=== PATIENT | male | born 1960 | race African-American/Black ===

== ENCOUNTER 2016-07-08 01:30 | Emergency (ER) | payer SELFPAY ==
[2016-07-08] MEDS ORDERED: OXYCODONE-ACETAMINOPHEN 5-325 MG TABLET PO ONE (03:43)
[2016-07-08] MEDS ORDERED: PENICILLIN V POTASSIUM 500 MG TABLET PO ONE (03:43)
--- NOTE | 2016-07-08 03:45 | ER Document Report ---
HPI - HPI Patient complains to provider of: dental pain Onset: Other Onset/Duration: Persistent - 2 days Quality of pain: Achy Pain Level: 5 Context: Patient complains of right upper dental pain for the past 2 days. Patient denies any fever or facial swelling. Associated Symptoms: Other - Dental pain Exacerbated by: Denies Relieved by: Denies Similar symptoms previously: Yes Recently seen / treated by doctor: No - ROS ROS below otherwise negative: Yes Systems Reviewed and Negative: Yes All other systems reviewed and negative - CONSTITUTIONAL Constitutional: DENIES: Fever - EENT EENT: DENIES: Sore Throat Notes: Dental pain - NEURO Neurology: DENIES: Headache - RESPIRATORY Respiratory: DENIES: Trouble Breathing, Coughing - GASTROINTESTINAL Gastrointestinal: DENIES: Nausea, Patient vomiting - MUSCULOSKELETAL Musculoskeletal: DENIES: Extremity pain, Neck Pain - DERM Skin Color: Normal Skin Problems: None Past Medical History - General Information source: Patient - Social History Smoking Status: Current Every Day Smoker Frequency of alcohol use: Occasional Drug Abuse: None Occupation: disabled Lives with: Family Family History: Reviewed & Not Pertinent Patient has suicidal ideation: No Patient has homicidal ideation: No - Past Medical History Cardiac Medical History: Reports: Hx Hypertension, Other - Peripheral artery disease Renal/ Medical History: Denies: Hx Peritoneal Dialysis Surgical Hx: Negative Vertical Provider Document - CONSTITUTIONAL Agree With Documented VS: Yes Exam Limitations: No Limitations General Appearance: WD/WN, No Apparent Distress - INFECTION CONTROL TRAVEL OUTSIDE OF THE [place] IN LAST 30 DAYS: No - HEENT HEENT: Atraumatic, Normocephalic Mouth Diagram: 1 - Dental decay, tenderness 2 - Broken tooth below the gumline Notes: No sublingual or submental swelling, no trismus, no potential airway compromise - NECK Neck: Normal Inspection, Supple - RESPIRATORY Respiratory: Breath Sounds Normal, No Respiratory Distress O2 Sat by Pulse Oximetry: 97 - CARDIOVASCULAR Cardiovascular: Regular Rate, Regular Rhythm, No Murmur - BACK Back: Normal Inspection - MUSCULOSKELETAL/EXTREMETIES Musculoskeletal/Extremeties: MAEW - NEURO Level of Consciousness: Awake, Alert, Appropriate Motor/Sensory: No Motor Deficit - DERM Integumentary: Warm, Dry, No Rash Course - Vital Signs Vital signs: Temp Pulse Resp BP Pulse Ox 97.7 F 76 18 173/63 H 97 07/08/16 01:36 07/08/16 01:36 07/08/16 01:36 07/08/16 01:36 07/08/16 01:36 Discharge - Discharge Clinical Impression: History of hypertension, Pain due to dental caries Condition: Stable Disposition: HOME, SELF-CARE Instructions: Penicillin V K ([facility]), Oral Narcotic Medication ([facility]), Toothache ( [facility]) Additional Instructions: Return immediately for any new or worsening symptoms Followup with your primary care provider, call tomorrow to make a followup appointment Follow up with the dentist Recheck with your primary doctor, your blood pressure was elevated tonight. Your doctor can recheck this in 1-2 days Prescriptions: Oxycodone HCl/Acetaminophen [Percocet 5-325 mg Tablet] 1 tab PO ASDIR PRN #12 tablet PRN Reason: Penicillin V Potassium [Penicillin Vk 500 mg Tablet] 500 mg PO BID #20 tablet Forms: Elevated Blood Pressure Referrals: [facility] [Provider Group] - Follow up as needed
[2016-07-08 04:25] VITALS: BP 133/65
== END 2016-07-08 04:25 | disposition home or self-care (01) ==
LOC: ER 01:30
DX: K02.9 Dental caries, unspecified (principal); I10 Essential (primary) hypertension; K08.89 Other specified disorders of teeth and supporting structures; F17.200 Nicotine dependence, unspecified, uncomplicated
CPT/HCPCS: 99282

== ENCOUNTER 2017-06-28 03:09 | Emergency (ER) | payer SELFPAY ==
[2017-06-28] MEDS ORDERED: SULFAMETHOXAZOLE/TRIMETHOPRIM 800-160 MG TABLET PO ONE (05:49)
[2017-06-28] MEDS ORDERED: CEPHALEXIN 500 MG CAPSULE PO ONE (05:49)
--- NOTE | 2017-06-28 05:50 | ER Document Report ---
HPI - HPI Patient complains to provider of: Left breast tenderness Onset: Last week Onset/Duration: Worse Quality of pain: Achy Pain Level: 3 Context: She states he has had a lump to the left breast for several months. Patient states over the past week the area has become tender, swollen and painful. Patient denies any fever. Patient denies any previous piercing. Associated Symptoms: Other - Left breast tenderness. denies: Fever Exacerbated by: Denies Relieved by: Denies Similar symptoms previously: No Recently seen / treated by doctor: No - ROS ROS below otherwise negative: Yes Systems Reviewed and Negative: Yes All other systems reviewed and negative - CONSTITUTIONAL Constitutional: DENIES: Fever, Chills - EENT EENT: DENIES: Sore Throat, Ear Pain, Eye problems - NEURO Neurology: DENIES: Headache - CARDIOVASCULAR Cardiovascular: DENIES: Chest pain - RESPIRATORY Respiratory: DENIES: Trouble Breathing, Coughing - MUSCULOSKELETAL Musculoskeletal: DENIES: Extremity pain - DERM Notes: Abscess to left breast Past Medical History - General Information source: Patient - Social History Smoking Status: Current Every Day Smoker Chew tobacco use (# tins/day): No Frequency of alcohol use: None Drug Abuse: None Occupation: None Family History: Reviewed & Not Pertinent Patient has suicidal ideation: No Patient has homicidal ideation: No - Past Medical History Cardiac Medical History: Reports: Hx Hypertension Renal/ Medical History: Denies: Hx Peritoneal Dialysis Surgical Hx: Negative - Immunizations Hx Diphtheria, Pertussis, Tetanus Vaccination: Yes Vertical Provider Document - CONSTITUTIONAL Agree With Documented VS: Yes Exam Limitations: No Limitations General Appearance: WD/WN, No Apparent Distress - INFECTION CONTROL TRAVEL OUTSIDE OF THE [place] IN LAST 30 DAYS: No - HEENT HEENT: Atraumatic, Normocephalic - NECK Neck: Normal Inspection - RESPIRATORY Respiratory: Breath Sounds Normal, No Respiratory Distress - CARDIOVASCULAR Cardiovascular: Regular Rate, Regular Rhythm - BACK Back: Normal Inspection - MUSCULOSKELETAL/EXTREMETIES Musculoskeletal/Extremeties: MAEW - NEURO Level of Consciousness: Awake, Alert, Appropriate Motor/Sensory: No Motor Deficit - DERM Integumentary: Warm, Dry, Abscess - Patient with abscess adjacent and behind the left nipple. Skin surrounding areola is erythematous and indurated Course - Re-evaluation Re-evalutation: 06/28/17 05:50 Dr. Mello to bedside for consultation, recommends incision and drainage with outpatient surgical follow-up - Vital Signs Vital signs: Temp Pulse Resp BP Pulse Ox 97.8 F 61 20 149/52 H 97 06/28/17 03:14 06/28/17 03:14 06/28/17 03:14 06/28/17 03:14 06/28/17 03:14 Procedures - Incision and Drainage Left Chest Type: Simple Anesthetic type: 1% Lidocaine Blade size: 11 I&D procedure: Betadine prep applied Incision Method: Incision made by scalpel Amount/type of drainage: large amount of purulent drainage Adult Front & Back picture: 1 - abscess Discharge - Discharge Clinical Impression: Breast abscess in male, Breast lump Condition: Stable Disposition: HOME, SELF-CARE Instructions: Abscess ([facility]), Oral Narcotic Medication ([facility]), Post Incision and Drainage, Trimethoprim-Sulfa ([facility]) Additional Instructions: Return immediately for any new or worsening symptoms Followup with your primary care provider, call tomorrow to make a followup appointment Wound cultures pending, we will call if you need any different treatment Follow-up with a surgeon for further evaluation of breast lump. It is important to make sure that this is not potentially early cancer. Call tomorrow for an appointment. Prescriptions: Cephalexin Monohydrate [Keflex 500 mg Capsule] 500 mg PO Q6H 5 Days capsule Naproxen [Naprosyn 250 Nmg Tablet] 1 tab PO BID #14 tablet Sulfamethoxazole/Trimethoprim [Bactrim Ds Tablet] 1 each PO BID #20 tablet Forms: Smoking Cessation Education Referrals: [facility] [Provider Group] - Follow up in 3-5 days
[2017-06-28] MEDS ORDERED: HYDROCODONE/ACETAMINOPHEN 5-325 MG (6 TAB/ER DISP) PO PRN (06:31)
[2017-06-28 06:48] VITALS: BP 146/51
== END 2017-06-28 06:40 | disposition home or self-care (01) ==
LOC: ER 03:09
PROC: 0H95XZZ Drainage of Chest Skin, External Approach (ICD-10-PCS; principal; 2017-06-28)
DX: N61.1 Abscess of the breast and nipple (principal); N63.0 Unspecified lump in unspecified breast; N64.4 Mastodynia
CPT/HCPCS: 87070; 87186; 87205; 99283

== ENCOUNTER 2017-07-14 10:16 | Emergency (ER) | payer MEDICARE, MEDICAID ==
[2017-07-14] MEDS ORDERED: KETOROLAC TROMETHAMINE INJ/PF 30 MG/1 ML SDV IM ONE (10:45)
--- NOTE | 2017-07-14 10:50 | ER Document Report ---
HPI - HPI Pain Level: 4 Notes: Patient is a 57-year-old male with a history of peripheral artery disease who presents to the ED complaining of posterior left shoulder pain status post injury 3 days ago. Patient states that he was raising his son when he lost balance so instead of falling on his face he did a somersault and landed on the shoulder. Patient states that he has had pain in that shoulder since then that will occasionally radiate into the left upper arm. Patient states that he is still able to move his arm through range of motion without any difficulties otherwise. He has been using Tylenol, Motrin, and ice. He has no other concerns or complaints at this time. Denies any drug allergies. He has not noticed any other bruising or swelling. Denies any headache, fever, head injury , neck pain, URI, sore throat, chest pain, palpitations, syncope, cough, shortness of breath, wheeze, dyspnea, abdominal pain, nausea/vomiting/diarrhea, urinary retention, dysuria, hematuria, loss of control of bowel or bladder, numbness/tingling, muscle paralysis/weakness, or rash. - ROS Systems Reviewed and Negative: Yes All other systems reviewed and negative Past Medical History - Social History Smoking Status: Unknown if Ever Smoked Family History: Reviewed & Not Pertinent - Past Medical History Cardiac Medical History: Reports: Hx Hypertension Renal/ Medical History: Denies: Hx Peritoneal Dialysis - Immunizations Hx Diphtheria, Pertussis, Tetanus Vaccination: Yes Vertical Provider Document - CONSTITUTIONAL Agree With Documented VS: Yes Notes: PHYSICAL EXAMINATION: GENERAL: Well-appearing, well-nourished and in no acute distress. A&Ox4. HEAD: Atraumatic, normocephalic. EYES: Pupils equal round and reactive to light, extraocular movements intact, sclera anicteric, conjunctiva are normal. NECK: Normal range of motion, supple without lymphadenopathy. No tenderness. Spurling negative. LUNGS: Breath sounds clear to auscultation bilaterally and equal. No wheezes rales or rhonchi. HEART: Regular rate and rhythm without murmurs, rubs, gallops. Musculoskeletal: Left shoulder: FROM to passive/active. Strength 5+/5. RC intact w/o deficits noted. + mild tenderness to the insertion at the latissimus dorsi and posterior shoulder. No swelling, ecchymosis, erythema, warmth, or deformity noted. N/V intact distal. No bony tenderness. Extremities: No cyanosis, clubbing, or edema b/l. Peripheral pulses 2+. Capillary refill less than 3 seconds. NEUROLOGICAL: Normal speech, normal gait. Normal sensory, motor exams PSYCH: Normal mood, normal affect. SKIN: Warm, Dry, normal turgor, no rashes or lesions noted. - INFECTION CONTROL TRAVEL OUTSIDE OF THE [place] IN LAST 30 DAYS: No Course - Re-evaluation Re-evalutation: 07/14/17 11:29 Patient is an afebrile, well-hydrated, 57-year-old male who presents to the ED with left shoulder pain, suspect sprain versus strain. Vitals are acceptable. PE is otherwise unremarkable for any neurovascular compromise, obvious tendon/ ligament rupture, obvious fracture/dislocation, septic joint. X-ray was unremarkable for any acute pathology. Toradol was given IM today. I will send him home with a prescription for naproxen. Conservative measures otherwise for symptoms. Recheck with your PCM in 3-5 days. Consider consult with orthopedic/ physical therapy. Return to the ED with any worsening/concerning symptoms otherwise as reviewed discharge. Patient is in agreement. - Vital Signs Vital signs: Temp Pulse Resp BP Pulse Ox 97.8 F 84 16 173/74 H 97 07/14/17 10:22 07/14/17 10:22 07/14/17 10:22 07/14/17 10:22 07/14/17 10:22 Discharge - Discharge Clinical Impression: Left shoulder pain Qualifiers: Chronicity: acute Qualified Code(s): M25.512 - Pain in left shoulder Condition: Stable Disposition: HOME, SELF-CARE Additional Instructions: Rest, Ice, Compression Tylenol/ibuprofen as needed Light stretches daily Strength exercises as able Moist heat and massage may help F/u with your PCP in 3-5 days for a recheck Consider consult(s) with Orthopedics/physical therapy for ongoing/worsening symptoms Return to the ED with any worsening symptoms and/or development of fever, headache, chest pain, palpitations, syncope, shortness of breath, trouble breathing, abdominal pain, n/v/d, muscle weakness/paralysis, numbness/tingling, swelling, redness, or other worsening symptoms that are concerning to you. Prescriptions: Naproxen 500 mg PO BID PRN #30 tablet PRN Reason: Forms: Elevated Blood Pressure Referrals: [facility] [Provider Group] - Follow up as needed
--- NOTE | 2017-07-14 11:16 | RADIOLOGY REPORT (SQ) ---
EXAM DESCRIPTION: SHOULDER LEFT 2 OR MORE VIEWS COMPLETED DATE/TIME: 07/14/2017 10:54 am REASON FOR STUDY: left shoulder pain s/p injury COMPARISON: None. NUMBER OF VIEWS: Three views. TECHNIQUE: Internal rotation, external rotation, and Y view images acquired of the left shoulder. LIMITATIONS: None. FINDINGS: MINERALIZATION: Normal. BONES: No acute fracture or dislocation. No worrisome bone lesions. JOINTS: No dislocation. VISUALIZED LUNGS AND RIBS: No pneumothorax. No rib fracture. SOFT TISSUES: No radiopaque foreign body. OTHER: No other significant finding. IMPRESSION: NEGATIVE STUDY OF THE LEFT SHOULDER. NO RADIOGRAPHIC EVIDENCE OF ACUTE INJURY. TECHNICAL DOCUMENTATION: JOB ID: [id number] [employer]- All Rights Reserved Reading location - IP/workstation name: [email or web address]
[2017-07-14 12:08] VITALS: BP 154/82
== END 2017-07-14 12:00 | disposition home or self-care (01) ==
LOC: ER 10:16
DX: M25.512 Pain in left shoulder (principal); M79.602 Pain in left arm; W19.XXXA Unspecified fall, initial encounter; I10 Essential (primary) hypertension
CPT/HCPCS: 99283; 96372; 73030; J1885

== ENCOUNTER 2017-10-13 23:18 | Emergency (ER) | payer MEDICARE, MEDICAID ==
[2017-10-14] MEDS ORDERED: DIPH/PERTUSS(ACELL)/TETANUS VAC/PF 0.5 ML SYR (>=10YO) IM ONE (00:36)
[2017-10-14] MEDS ORDERED: LIDOCAINE 1% INJ-PF (10 MG/ML) 30 ML SDV INJ ONE (00:36)
--- NOTE | 2017-10-14 00:40 | ER Document Report ---
ED Wound - General Chief Complaint: Laceration Stated Complaint: FINGER LACERATION Time Seen by Provider: 10/14/17 00:32 Notes: Patient is a 57-year-old male comes to the emergency department for chief complaint of laceration to his right index finger. He states he sleeps with a razor sharp machete blade across his chest, he states that he accidentally moved his hand while he was shifting and cut open his finger. He denies any other injuries. His tetanus is not up-to-date within 5 years. He is not on any blood thinners, he does not have a history of diabetes. TRAVEL OUTSIDE OF THE [place] IN LAST 30 DAYS: No - Related Data Allergies/Adverse Reactions: No Known Allergies Allergy (Verified 07/14/17 10:17) Past Medical History - General Information source: Patient - Social History Smoking Status: Never Smoker Drug Abuse: None Lives with: Alone Family History: Reviewed & Not Pertinent - Past Medical History Cardiac Medical History: Reports: Hx Hypertension Renal/ Medical History: Denies: Hx Peritoneal Dialysis - Immunizations Immunizations up to date: No Hx Diphtheria, Pertussis, Tetanus Vaccination: Yes Review of Systems - Review of Systems Constitutional: No symptoms reported EENT: No symptoms reported Cardiovascular: No symptoms reported Respiratory: No symptoms reported Gastrointestinal: No symptoms reported Genitourinary: No symptoms reported Male Genitourinary: No symptoms reported Musculoskeletal: See HPI Skin: See HPI Hematologic/Lymphatic: No symptoms reported Neurological/Psychological: No symptoms reported Physical Exam - Vital signs Vitals: Temp Pulse Resp BP Pulse Ox 98.7 F 58 L 18 147/53 H 96 10/14/17 00:04 10/14/17 00:04 10/14/17 00:04 10/14/17 00:04 10/14/17 00:04 - Notes Notes: GENERAL: Alert, interacts well. No acute distress. HEAD: Normocephalic, atraumatic. EYES: Pupils equal, round, and reactive to light. Extraocular movements intact. ENT: Oral mucosa moist, tongue midline. NECK: Full range of motion. Supple. Trachea midline. LUNGS: Clear to auscultation bilaterally, no wheezes, rales, or rhonchi. No respiratory distress. HEART: Regular rate and rhythm. No murmur ABDOMEN: Soft, non-tender. Non-distended. Bowel sounds present in all 4 quadrants. EXTREMITIES: Moves all 4 extremities spontaneously. There is a 1.5 cm laceration over the palmar aspect of the right index finger between the PIP and the DIP, partial-thickness, normal range of motion of the finger, normal sensation and capillary refill, no evidence of large vessel injury. Normal upper extremity exam otherwise. BACK: no cervical, thoracic, lumbar midline tenderness. No saddle anesthesia, normal distal neurovascular exam. NEUROLOGICAL: Alert and oriented x3. Normal speech. [cranial nerves II through XII grossly intact]. PSYCH: Normal affect, normal mood. SKIN: Warm, dry, normal turgor. No rashes or lesions noted. Course - Re-evaluation Re-evalutation: Wound cleaned thoroughly, repaired. No evidence of damage to the tendon, nerve , or large vessel. Discussed wound care, advised patient not sleep with any weapons, discussed follow-up and return precautions. Patient states understanding and agreement. - Vital Signs Vital signs: Temp Pulse Resp BP Pulse Ox 98.7 F 58 L 18 147/53 H 96 10/14/17 00:04 10/14/17 00:04 10/14/17 00:04 10/14/17 00:04 10/14/17 00:04 Procedures - Laceration/Wound Repair Right index finger Wound length (cm): 1.5 Wound's Depth, Shape: Linear Laceration pre-procedure: Sterile PPE donned, Sterile drapes applied, Shur- Clens applied Anesthetic type: 1% Lidocaine Volume Anesthetic (mLs): 2 Wound explored: Clean, No foreign body removed Irrigated w/ Saline (mLs): 40 Wound Repaired With: Sutures Suture Size/Type: 5:0 Number of Sutures: 4 Layer Closure?: No Post-procedure wound care: Sterile dressing applied Post-procedure NV exam normal: Yes Complications: No Discharge - Discharge Clinical Impression: Finger laceration Qualifiers: Encounter type: initial encounter Finger: index finger Damage to nail status: without damage Foreign body presence: without foreign body Laterality: right Qualified Code(s): S61.210A - Laceration without foreign body of right index finger without damage to nail, initial encounter Condition: Stable Disposition: HOME, SELF-CARE Instructions: Tetanus Immunization Given ([facility]) Additional Instructions: Sutures need to come out in about 7 days a medical facility. Keep clean, clean with soap and water, avoid soaking, dab dry. You can dress with topical antibiotic. Follow-up with primary care. Return for any concerning symptoms including swelling, redness, discolored discharge, fever, or any other concerning symptoms.
[2017-10-14 02:11] VITALS: BP 120/50
== END 2017-10-14 02:11 | disposition home or self-care (01) ==
LOC: ER 23:18
DX: S61.210A Laceration without foreign body of right index finger without damage to nail, initial encounter (principal); W26.8XXA Contact with other sharp object(s), not elsewhere classified, initial encounter; Y93.84 Activity, sleeping; I10 Essential (primary) hypertension
CPT/HCPCS: 99282; 90471; 90715; 12001; J3490

== ENCOUNTER 2019-01-05 21:02 | Emergency (ER) | payer MEDICAID, MEDICARE, OTHER ==
[2019-01-05] MEDS ORDERED: ACETAMINOPHEN 325 MG TABLET PO ONE (21:38)
--- NOTE | 2019-01-05 21:38 | ER Document Report ---
ED Medical Screen (RME) - General Chief Complaint: Headache Stated Complaint: FALL/HEAD PAIN Time Seen by Provider: 01/05/19 21:34 Mode of Arrival: Ambulatory Information source: Patient Notes: 58-year-old male presents to ED for head pain. He states he fell a week ago yesterday. States that the time he did hit his head states he did not lose consciousness he is not on any blood thinners. He states the pain is on the left side of his head. He states he has arterial disease in his left arm stays numb it is the left side of his head that hurts. Patient is alert oriented respirations regular and unlabored speaking in full sentences at this time. He states the pain is not getting any better and is at least 4 out of 5. He states he is tried Tylenol and Excedrin with no relief. States he has not been to a doctor he does not have a primary care doctor. He states he had some Tylenol on Saturday and Saturday but none today. I have greeted and performed a rapid initial assessment of this patient. A comprehensive ED assessment and evaluation of the patient, analysis of test results and completion of medical decision making process will be conducted by an additional ED providers. TRAVEL OUTSIDE OF THE [place] IN LAST 30 DAYS: No - Related Data Allergies/Adverse Reactions: No Known Allergies Allergy (Verified 07/14/17 10:17) Past Medical History - Past Medical History Cardiac Medical History: Reports: Hx Hypertension Renal/ Medical History: Denies: Hx Peritoneal Dialysis - Immunizations Immunizations up to date: No Hx Diphtheria, Pertussis, Tetanus Vaccination: Yes Physical Exam - Vital signs Vitals: Temp Pulse Resp BP Pulse Ox 98.6 F 96 16 130/57 H 93 01/05/19 21:08 01/05/19 21:08 01/05/19 21:08 01/05/19 21:08 01/05/19 21:08 Course - Vital Signs Vital signs: Temp Pulse Resp BP Pulse Ox 98.6 F 96 16 130/57 H 93 01/05/19 21:08 01/05/19 21:08 01/05/19 21:08 01/05/19 21:08 01/05/19 21:08
--- NOTE | 2019-01-05 22:29 | RADIOLOGY REPORT (SQ) ---
CT HEAD WITHOUT IV CONTRAST EXAM DATE: 01/05/2019 9:38 PM CDT HISTORY: Fall headache. COMPARISON: None. TECHNIQUE: CT scan of the brain without IV contrast. This exam was performed according to our departmental dose-optimization program, which includes automated exposure control, adjustment of the mA and/or kV according to patient size and/or use of iterative reconstruction technique. FINDINGS: The ventricles, cisterns, and sulci are age-appropriate. No evidence of acute infarction, intracranial hemorrhage, extra-axial fluid collection, or midline shift. No air-fluid levels are seen in the paranasal sinuses to suggest acute sinusitis. No depressed skull fracture. IMPRESSION: No acute intracranial findings.
--- NOTE | 2019-01-05 23:08 | ER Document Report ---
ED Fall - General Chief Complaint: Fall Injury Stated Complaint: FALL/HEAD PAIN Time Seen by Provider: 01/05/19 21:34 Mode of Arrival: Ambulatory Information source: Patient Notes: Patient is a 4-year-old male presents to the emergency department after a fall on 12/27/2018. Patient states he tripped from standing height fell onto concrete in the left side of his head. Patient's denying any loss of consciousness or vomiting at that time. States he has had intermittent headache ever since. Patient voices "just wanted to make sure there were no tumors and there." Patient is denying taking any blood thinners or any other medications. Patient denies any blurred vision, dizziness, lightheaded to me upon examination. He has been treated with Tylenol by E provider. Patient is watching sports on his cell phone in no apparent distress upon examination. TRAVEL OUTSIDE OF THE [place] IN LAST 30 DAYS: No - Related data Allergies/Adverse Reactions: No Known Allergies Allergy (Verified 01/05/19 21:44) Home Medications: Pt denies any home medications Past Medical History - General Information source: Patient - Social History Smoking Status: Current Every Day Smoker Chew tobacco use (# tins/day): No Frequency of alcohol use: approx 1 shot daily Drug Abuse: Marijuana Family History: Reviewed & Not Pertinent Patient has suicidal ideation: No Patient has homicidal ideation: No - Past Medical History Cardiac Medical History: Reports: Hx Hypertension Renal/ Medical History: Denies: Hx Peritoneal Dialysis - Immunizations Immunizations up to date: No Hx Diphtheria, Pertussis, Tetanus Vaccination: Yes Review of Systems - Review of Systems Constitutional: denies: Fever EENT: See HPI Cardiovascular: No symptoms reported Respiratory: No symptoms reported Gastrointestinal: No symptoms reported Genitourinary: No symptoms reported Male Genitourinary: No symptoms reported Musculoskeletal: No symptoms reported Skin: No symptoms reported Hematologic/Lymphatic: No symptoms reported Neurological/Psychological: See HPI Physical Exam - Vital signs Vitals: Temp Pulse Resp BP Pulse Ox 98.6 F 96 16 130/57 H 93 01/05/19 21:08 01/05/19 21:08 01/05/19 21:08 01/05/19 21:08 01/05/19 21:08 - Notes Notes: GENERAL: Alert, interacts well. No acute distress. HEAD: Normocephalic, atraumatic. EYES: Pupils equal, round, and reactive to light. Extraocular movements intact. ENT: Oral mucosa moist, tongue midline. Nares patent, no nasal septal hematoma, TM's intact, no hemotympanum noted bilaterally. NECK: Full range of motion. Supple. Trachea midline. LUNGS: Clear to auscultation bilaterally, no wheezes, rales, or rhonchi. No respiratory distress. HEART: Regular rate and rhythm. No murmur ABDOMEN: Soft, non-tender. Non-distended. Bowel sounds present in all 4 quadrants. EXTREMITIES: Moves all 4 extremities spontaneously. No edema, normal radial and dorsalis pedis pulses bilaterally. No cyanosis. 5 out of 5 strength noted all 4 extremities BACK: no cervical, thoracic, lumbar midline tenderness. No saddle anesthesia, normal distal neurovascular exam. NEUROLOGICAL: Alert and oriented x3. Normal speech. cranial nerves II through XII grossly intact. PSYCH: Normal affect, normal mood. SKIN: Warm, dry, normal turgor. No rashes or lesions noted. Course - Re-evaluation Re-evalutation: 01/05/19 23:[address] 01/05/19 21:38 IMPRESSION: No acute intracranial findings. Upon my examination patient is watching sports on his cell phone. He is in no apparent distress. I discussed patient's negative CT with him at bedside. I also discussed postconcussive syndrome. Patient voices the Tylenol has helped his headache and he no longer has a headache. He is denying any blurred vision, double vision upon my examination. Discussed close follow-up at [facility] as patient voices he is uninsured. - Vital Signs Vital signs: Temp Pulse Resp BP Pulse Ox 98.6 F 96 16 130/57 H 93 01/05/19 21:08 01/05/19 21:08 01/05/19 21:08 01/05/19 21:08 01/05/19 21:08 Discharge - Discharge Clinical Impression: Postconcussive syndrome Condition: Stable Disposition: HOME, SELF-CARE Instructions: Post-Concussion Syndrome ([facility]) Additional Instructions: As we discussed you have been seen and treated in the emergency department for postconcussive syndrome. Please make sure you follow-up at [facility] for continued evaluation. CT imaging of your brain reveals no abnormalities at this time. Please return to the emergency room for any concerns. Referrals: [facility] [Provider Group] - Follow up as needed [facility] [Provider Group] - Follow up as needed
[2019-01-05 23:36] VITALS: BP 105/45
== END 2019-01-05 23:34 | disposition home or self-care (01) ==
LOC: ER 21:02
DX: F07.81 Postconcussional syndrome (principal); R51 Headache; I10 Essential (primary) hypertension; F17.200 Nicotine dependence, unspecified, uncomplicated
CPT/HCPCS: 70450; 99283

== ENCOUNTER 2019-05-25 20:35 | Emergency (ER) | payer OTHER ==
[2019-05-25] MEDS ORDERED: ASPIRIN 81 MG TABLET, CHEWABLE PO ONE (21:02)
--- NOTE | 2019-05-25 21:02 | ER Document Report ---
ED Medical Screen (RME) - General Chief Complaint: Chest Pain Stated Complaint: CHEST PAIN,COUGH.DIFFICULTY BREATHNING Time Seen by Provider: 05/25/19 20:58 Mode of Arrival: Ambulatory Information source: Patient Notes: 59-year-old male presented to ED for complaint of chest pain to the left side of his chest going up to his throat. He states that this started 4 days ago. He states it is continued and he is concerned for this continued chest pain. He is alert oriented respirations regular nonlabored. He has peripheral artery disease but does not have any chest problems in the past. He states he just has poor circulation. He states he smokes 2 black in miles a day, drinks weekly or less, and smokes marijuana. I have greeted and performed a rapid initial assessment of this patient. A comprehensive ED assessment and evaluation of the patient, analysis of test results and completion of medical decision making process will be conducted by an additional ED providers. TRAVEL OUTSIDE OF THE [place] IN LAST 30 DAYS: No - Related Data Allergies/Adverse Reactions: No Known Allergies Allergy (Verified 01/05/19 21:44) Past Medical History - Past Medical History Cardiac Medical History: Reports: Hx Hypertension Renal/ Medical History: Denies: Hx Peritoneal Dialysis - Immunizations Immunizations up to date: No Hx Diphtheria, Pertussis, Tetanus Vaccination: Yes Physical Exam - Vital signs Vitals: Temp Pulse Resp BP Pulse Ox 99.0 F 90 16 133/57 H 97 05/25/19 20:49 05/25/19 20:49 05/25/19 20:49 05/25/19 20:49 05/25/19 20:49 Course - Vital Signs Vital signs: Temp Pulse Resp BP Pulse Ox 99.0 F 90 16 133/57 H 97 05/25/19 20:49 05/25/19 20:49 05/25/19 20:49 05/25/19 20:49 05/25/19 20:49
--- NOTE | 2019-05-25 21:44 | RADIOLOGY REPORT (SQ) ---
EXAM DESCRIPTION: XR CHEST 2 VIEWS COMPLETED DATE/TME: 05/25/2019 21:03 CLINICAL HISTORY: 59 years, Male, Chest pain COMPARISON: None. NUMBER OF VIEWS: 2 TECHNIQUE: LIMITATIONS: None. FINDINGS: Cardiomediastinal silhouette is normal. Mild interstitial prominence. No focal airspace disease. No effusion. No pneumothorax IMPRESSION: Mild interstitial prominence. This is of unknown chronicity. No focal airspace disease copyright 2010 [employer]- All Rights Reserved
[2019-05-25 22:01] LABS: ABSOLUTE BASOPHILS # (AUTO) 0.1 10^3/uL (0.0-0.2); ABSOLUTE EOSINOPHILS # (AUTO) 0.1 10^3/uL (0.0-0.6); ABSOLUTE LYMPHOCYTES (AUTO) 2.6 10^3/uL (0.5-4.7); ABSOLUTE MONOCYTES (AUTO) 0.7 10^3/uL (0.1-1.4); ABSOLUTE NEUT (AUTO) 3.9 10^3/uL (1.7-8.2); BASOPHILS % (AUTO) 0.7 % (0-2); EOSINOPHILS % (AUTO) 1.9 % (0-6); HEMATOCRIT 40.8 % (37.9-51.0); HEMOGLOBIN 14.1 g/dL (13.5-17.0); MEAN CORPUSCULAR HEMOGLOBIN 33.8 pg (27.0-33.4); MEAN CORPUSCULAR HGB CONC 34.4 g/dL (32.0-36.0); MEAN CORPUSCULAR VOLUME 98 fl (80-97); MONOCYTES % (AUTO) 9.9 % (3-13); PLATELET COUNT 264 10^3/uL (150-450); RED BLOOD COUNT 4.16 10^6/uL (4.35-5.55); RED CELL DISTRIBUTION WIDTH 13.1 % (11.5-14.0); SEGMENTED NEUTROPHILS % (AUTO) 52.5 % (42-78); TOTAL CELLS COUNTED % (AUTO) 100 %; WHITE BLOOD COUNT 7.4 10^3/uL (4.0-10.5)
[2019-05-25 22:20] LABS: ALBUMIN 3.9 g/dL (3.5-5.0); ALKALINE PHOSPHATASE 124 U/L (38-126); ANION GAP 8 (5-19); ASPARTATE AMINO TRANSFERASE 26 U/L (17-59); BILIRUBIN,DIRECT 0.3 mg/dL (0.0-0.4); BILIRUBIN,TOTAL 0.4 mg/dL (0.2-1.3); BLOOD UREA NITROGEN 9 mg/dL (7-20); CALCIUM 8.9 mg/dL (8.4-10.2); CARBON DIOXIDE 29 mmol/L (22-30); CHLORIDE 104 mmol/L (98-107); GLUCOSE 117 mg/dL (75-110); POTASSIUM 4.2 mmol/L (3.6-5.0)
--- NOTE | 2019-05-25 23:08 | ER Document Report ---
Entered by FARRAH JUAN SCRIBE 05/25/19 4781 Acting as scribe for:LILY CONTEH DO ED General - General Chief Complaint: Chest Pain Stated Complaint: CHEST PAIN,COUGH.DIFFICULTY BREATHNING Time Seen by Provider: 05/25/19 20:58 Mode of Arrival: Ambulatory Information source: Patient Notes: This 59 year old male patient presents to the ED today with complaints of chest pain that starts at the top of his chest and radiates up to his neck that started x4 days ago. Patient states that the pain is a burning sensation that is worse with cough. Patient notes that he brings up green sputum with his cough. Patient states that the pain has been steady since onset. Patient reports LUE numbness, particularly in his fingers, stating that he has poor circulation. [place]ana [place] reports that he has peripheral artery disease, but denies history of hypertension or diabetes. Patient states that he smokes x2 black and mild cigars a day, drinks weekly or less, and smokes marijuana. Patient denies any recent travel. TRAVEL OUTSIDE OF THE [place] IN LAST 30 DAYS: No - HPI Onset/Duration: Gradual Quality of pain: Sharp Severity: Moderate Associated symptoms: Productive cough Exacerbated by: Denies Relieved by: Denies - Related Data Allergies/Adverse Reactions: No Known Allergies Allergy (Verified 05/25/19 20:59) Past Medical History - General Information source: Patient - Social History Smoking Status: Current Every Day Smoker Cigarette use (# per day): Yes - x2 Black and mild cigars pd Chew tobacco use (# tins/day): No Smoking Education Provided: No Frequency of alcohol use: Occasional Drug Abuse: Marijuana Lives with: Family Family History: Reviewed & Not Pertinent Patient has suicidal ideation: No Patient has homicidal ideation: No - Past Medical History Cardiac Medical History: Reports: Hx Hypertension - Immunizations Immunizations up to date: No Hx Diphtheria, Pertussis, Tetanus Vaccination: Yes Review of Systems - Review of Systems Constitutional: No symptoms reported EENT: No symptoms reported Cardiovascular: See HPI, Chest pain Respiratory: See HPI, Cough, Sputum Gastrointestinal: No symptoms reported Genitourinary: No symptoms reported Male Genitourinary: No symptoms reported Musculoskeletal: See HPI, Other - LUE numbness Skin: No symptoms reported Hematologic/Lymphatic: No symptoms reported Neurological/Psychological: No symptoms reported -: Yes All other systems reviewed and negative Physical Exam - Vital signs Vitals: Temp Pulse Resp BP Pulse Ox 99.0 F 90 16 133/57 H 97 05/25/19 20:49 05/25/19 20:49 05/25/19 20:49 05/25/19 20:49 05/25/19 20:49 - General General appearance: Alert - HEENT Head: Normocephalic, Atraumatic Eyes: Normal Pupils: PERRL - Respiratory Respiratory status: No respiratory distress Chest status: Nontender Breath sounds: Normal Chest palpation: Normal - Cardiovascular Rhythm: Regular Heart sounds: Normal auscultation Murmur: No - Abdominal Inspection: Normal Distension: No distension Bowel sounds: Normal Tenderness: Nontender - Abdomen soft Organomegaly: No organomegaly - Back Back: Normal, Nontender - Extremities General upper extremity: Normal inspection General lower extremity: Normal inspection - Neurological Neuro grossly intact: Yes - Psychological Associated symptoms: Normal affect, Normal mood - Skin Skin Temperature: Warm Skin Moisture: Dry Skin Color: Normal Course - Re-evaluation Re-evalutation: 05/26/19 00:20 MDM 59 year old male, active smoker with known pad is here with left sided pain in his chest that is constant over about 4 days. For this reason as well as the reassuring ekg - LVH, no st elevation or depression, no ectopy - I feel he can safely follow up. [facility] (he moved here from [place] about 4 years ago, stopped antihypertensives and has never reestablished care). He is reasonable and pain free here when I speak with him to review his studies. Will treat his productive cough with mdi and antibiotics. - Vital Signs Vital signs: Temp Pulse Resp BP Pulse Ox 98.4 F 90 22 H 118/53 L 96 05/26/19 00:25 05/25/19 20:49 05/26/19 00:25 05/26/19 00:25 05/26/19 00:25 - Laboratory Result Diagrams: 05/25/19 21:44 05/25/19 21:44 Laboratory results interpreted by me: 05/25/19 05/25/19 21:44 21:44 RBC 4.16 L MCV 98 H MCH 33.8 H Glucose 117 H - Diagnostic Test Radiology reviewed: Reports reviewed - EKG Interpretation by Me EKG shows normal: Sinus rhythm - NSR Nl axis [address] elevation or depression my interpretation. Discharge - Discharge Clinical Impression: Chest pain Qualifiers: Chest pain type: unspecified Qualified Code(s): R07.9 - Chest pain, unspecified Hypertension Qualifiers: Hypertension type: unspecified Qualified Code(s): I10 - Essential (primary) hypertension Condition: Good Disposition: HOME, SELF-CARE Instructions: Bronchitis ([facility]), Chest Wall Pain ([facility]), Chest Pain of Unclear Ca use ([facility]), Stop Smoking ([facility]) Additional Instructions: See your doctor in follow up. Rest. Stop smoking. Please return here for any problems or any concerns. Take tylenol or ibuprofen for the chest discomfort. Please return here for chest pain, shortness of breath or any other concerns. Prescriptions: Albuterol Sulfate [Ventolin Hfa 8 gm Mdi] 2 puff IH Q6HP PRN #1 inhaler PRN Reason: Cephalexin Monohydrate [Keflex 500 mg Capsule] 500 mg PO TID #30 capsule Forms: Smoking Cessation Education, Elevated Blood Pressure I personally performed the services described in the documentation, reviewed and edited the documentation which was dictated to the scribe in my presence, and it accurately records my words and actions.
[2019-05-26 00:30] VITALS: BP 118/53
--- NOTE | 2019-05-26 12:02 | EKG REPORT ---
SEVERITY:- ABNORMAL ECG - SINUS RHYTHM CONSIDER LEFT VENTRICULAR HYPERTROPHY : Confirmed by: Yvonne Irving 26-May-2019 12:02:01
== END 2019-05-26 00:45 | disposition home or self-care (01) ==
LOC: ER 20:35
DX: R07.9 Chest pain, unspecified (principal); I10 Essential (primary) hypertension; R05 Cough; R06.00 Dyspnea, unspecified; F17.290 Nicotine dependence, other tobacco product, uncomplicated
CPT/HCPCS: 36415; 71046; 80053; 83735; 84484; 85025; 93005; 93010; 99285